=== PATIENT | female | born 1975 | race Caucasian/White ===

== ENCOUNTER 2017-08-17 12:25 | Emergency (ER) | payer OTHER ==
[~2017-08-17] VITALS: Ht 172.7 cm; Wt 134.3 kg
[2017-08-17 12:34] VITALS: BP 136/65
--- NOTE | 2017-08-17 12:40 | NUR ---
PT AMBULATES TO BED 12, REPORT GIVEN TO ELIAN CHARLES
--- NOTE | 2017-08-17 12:50 | NUR ---
PATIENT PRESENTS TO ED WITH COMPLAINTS OF LEFT EYE PAIN, SWELLING, AND BLURRY VISION. PATIENT REPORTS THAT SYMPTOMS STARTED THIS MORNING UPON WAKENING. LEFT EYE APPEARS RED AND SWOLLEN. DENIES N/V/D; SKIN IS PINK/WARM/DRY; AAOX4 WITH EVEN AND STEADY GAIT; LUNGS CLEAR BL; HR EVEN AND REGULAR; PT DENIES ANY FEVER, CP, SOB, OR COUGH AT THIS TIME; PATIENT STATES PAIN OF 7/10 AT THIS TIME; VSS; PATIENT POSITIONED FOR COMFORT; HOB ELEVATED; BEDRAILS UP X1; BED DOWN. ER MD MADE AWARE OF PT STATUS.
--- NOTE | 2017-08-17 15:07 | NUR ---
Patient discharged with v/s stable. Written and verbal after care instructions given and explained. Patient alert, oriented and verbalized understanding of instructions. Ambulatory with steady gait. All questions addressed prior to discharge. ID band removed. Patient advised to follow up with PMD. Rx of ERYTHROMYCIN, IBUPROFEN, DOXYCYCLINE given. Patient educated on indication of medication including possible reaction and side effects. Opportunity to ask questions provided and answered.
[2017-08-17 15:08] VITALS: BP 121/61
== END 2017-08-17 15:07 | disposition home or self-care (01) ==
LOC: MED 12:25
DX: H00.14 Chalazion left upper eyelid (principal); F41.9 Anxiety disorder, unspecified; F32.9 Major depressive disorder, single episode, unspecified; I10 Essential (primary) hypertension; Z87.442 Personal history of urinary calculi
CPT/HCPCS: 99283

== ENCOUNTER 2018-02-07 16:26 | Emergency (ER) | payer OTHER ==
[~2018-02-07] VITALS: Ht 172.7 cm; Wt 126.1 kg
[2018-02-07 16:50] VITALS: BP 123/66
[2018-02-07] MEDS ORDERED: DIT5 PO (17:00)
[2018-02-07] MEDS ORDERED: SERT100T PO (17:00)
[2018-02-07] MEDS ORDERED: FERR325E14 PO (17:00)
[2018-02-07] MEDS ORDERED: ORE25 PO (17:00)
[2018-02-07] MEDS ORDERED: GABA300C PO (17:00)
[2018-02-07] MEDS ORDERED: ALPR0.5T20 PO (17:00)
[2018-02-07] MEDS ORDERED: QUET300T1 PO (17:00)
[2018-02-07] MEDS ORDERED: IBUP-2213 PO (17:00)
[2018-02-07] MEDS ORDERED: TRAZ-343 PO (17:00)
[2018-02-07] MEDS ORDERED: KETOROLAC 30 MG/ML VIAL IVP ONE (19:15)
[2018-02-07] MEDS ORDERED: NACL 0.9% 1,000 ML IV ONE (19:15)
[2018-02-07] MEDS ORDERED: ONDANSETRON 4 MG/2 ML VIAL IVP ONE (20:10)
[2018-02-07] MEDS ORDERED: MORPHINE SULFATE 4 MG/ML SYR IVP ONE (20:10)
[2018-02-07 21:19] VITALS: BP 98/76
== END 2018-02-07 21:19 | disposition home or self-care (01) ==
LOC: MED 16:26
DX: R10.9 Unspecified abdominal pain (principal); R30.0 Dysuria; R11.0 Nausea; I10 Essential (primary) hypertension; F17.200 Nicotine dependence, unspecified, uncomplicated; Z87.442 Personal history of urinary calculi; Z90.49 Acquired absence of other specified parts of digestive tract; Z79.899 Other long term (current) drug therapy
CPT/HCPCS: 81002; 81025; 96374; 96375; 99283; J1885; J2270; J2405; J7030

== ENCOUNTER 2018-12-25 11:47 | Emergency (ER) | payer OTHER ==
[~2018-12-25] VITALS: Ht 172.7 cm; Wt 108.9 kg
[~2018-12-25 11:47] MED LIST: ALPR0.5T20 PO; DIT5 PO; FERR325E14 PO; GABA300C PO; IBUP-2213 PO; ORE25 PO; QUET300T1 PO; SERT100T PO; TRAZ-343 PO
[2018-12-25 12:01] VITALS: BP 131/80
--- NOTE | 2018-12-25 12:04 | NUR ---
Patient transferred to bed 1 via wheelchair. RN evaluating patient and family at bedside.
[2018-12-25] MEDS ORDERED: IBUPROFEN 800 MG TAB PO ONE (12:10)
--- NOTE | 2018-12-25 12:15 | NUR ---
S/P FALL THIS MORNING IN THE SHOWER, DENIES LOC, C/O GENERALIZED BODY PAIN HX MS, DEPRESSION, MS, LUPUS, HTN, BIPOLAR, ANXIETY . DENIES N/V/D; SKIN IS PINK/WARM/DRY; AAOX4 . LUNGS CLEAR BL; HR EVEN AND REGULAR; PT DENIES ANY FEVER, CP, SOB, OR COUGH AT THIS TIME; PATIENT STATES PAIN OF 10/10 AT THIS TIME; VSS; PATIENT POSITIONED FOR COMFORT; HOB ELEVATED; BEDRAILS UP X2; BED DOWN. ER MD MADE AWARE OF PT STATUS.
[2018-12-25 14:38] VITALS: BP 125/78
== END 2018-12-25 14:39 | disposition home or self-care (01) ==
LOC: MED 11:47
DX: S66.911A Strain of unspecified muscle, fascia and tendon at wrist and hand level, right hand, initial encounter (principal); S20.211A Contusion of right front wall of thorax, initial encounter; M79.601 Pain in right arm; I10 Essential (primary) hypertension; Z98.890 Other specified postprocedural states; Z79.1 Long term (current) use of non-steroidal anti-inflammatories (NSAID); Z79.899 Other long term (current) drug therapy; W01.0XXA Fall on same level from slipping, tripping and stumbling without subsequent striking against object, initial encounter; Y93.89 Activity, other specified; Y92.89 Other specified places as the place of occurrence of the external cause; Y99.8 Other external cause status
CPT/HCPCS: 71100; 73080; 73110; 99283

== ENCOUNTER 2021-06-19 07:27 | Emergency (ER) | payer OTHER ==
[~2021-06-19] VITALS: Ht 172.7 cm; Wt 124.3 kg
[~2021-06-19 07:27] MED LIST changes: +HYDR-4004 PO; -ORE25 PO
[2021-06-19 07:31] VITALS: BP 174/109
--- NOTE | 2021-06-19 07:38 | NUR ---
Patient ambulated to bed 09 with steady/even gait.
--- NOTE | 2021-06-19 07:48 | NUR ---
Dr. [place] is evaluating patient at bedside
--- NOTE | 2021-06-19 07:50 | NUR ---
45yo F, known asthmatic, c/o worsening sob, diff breathing, chest pain, congestion and productive cough x 3 days. 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 Pt states sternal chest pain 7/10, stabbing/twisting/intermittent, non-radiating pain. Pt placed onto phototypesetting equipment monitor. SpO2 100% on room air. Denies blurry vision, headache, fever, chills, n/v/d. Bed locked in lowest position, side rails x 1. pmh: asthma, anxiety meds: albuterol nka
[2021-06-19] MEDS ORDERED: KETOROLAC 30 MG/ML VIAL IM ONE (07:55)
--- NOTE | 2021-06-19 08:03 | NUR ---
Lab at bedside
--- NOTE | 2021-06-19 08:05 | NUR ---
RAD at bedside
[2021-06-19 08:22] LABS: BASOPHILS % (AUTO) 0.6 % (0.0-2.0); EOSINOPHILS # (AUTO) 0.2 K/uL (0-0.4); EOSINOPHILS % (AUTO) 3.3 % (0.0-4.0); HEMATOCRIT 34.7 % (36-48); HEMOGLOBIN 11.6 g/dL (12.0-16.0); LYMPHOCYTES # (AUTO) 1.3 K/uL (2.5-16.5); LYMPHOCYTES % (AUTO) 26.9 % (20.5-51.1); MEAN CORPUSCULAR HEMOGLOBIN 30 pg (27-31); MEAN CORPUSCULAR HGB CONC 33 g/dL (33-37); MEAN CORPUSCULAR VOLUME 88.5 fL (80-94); MONOCYTES # (AUTO) 0.3 K/uL (0.8-1.0); MONOCYTES % (AUTO) 7.1 % (1.7-9.3); NEUTROPHILS # (AUTO) 2.9 K/uL (1.8-7.7); NEUTROPHILS % (AUTO) 62.1 % (42.2-75.2); PLATELET COUNT (AUTO) 146 K/uL (140-450); RED BLOOD CELL COUNT(AUTO) 3.93 MIL/uL (4.20-5.40); RED CELL DISTRIBUTION WIDTH 14.1 % (11.6-13.7); WHITE BLOOD COUNT (AUTO) 4.7 K/uL (4.8-10.8)
--- NOTE | 2021-06-19 08:26 | NUR ---
Patient states + relief to pain; 06/21. All needs met.
[2021-06-19 08:39] LABS: ALBUMIN 3.6 g/dL (3.4-5.0); ANION GAP 12.8 (8-16); CARBON DIOXIDE 26.4 mmol/L (21-32); POTASSIUM 3.2 mmol/L (3.5-5.1); TOTAL BILIRUBIN 0.4 mg/dL (0.0-1.0)
[2021-06-19] MEDS ORDERED: POTASSIUM CHLORIDE 10 MEQ TABER PO ONE (09:00)
--- NOTE | 2021-06-19 09:04 | NUR ---
Pt states increasing SOB that comes and goes; RR 29 rapid/deep. SpO2 98% on room air. Lung sounds clear bilaterally. monitor technician remains in place.
--- NOTE | 2021-06-19 09:48 | NUR ---
Lab at bedside
--- NOTE | 2021-06-19 10:51 | NUR ---
Patient resting in high-fowlers with both eyes closed. compliance monitor in place. SpO2 100% on room air; RR 17 even/unlabored. Bed locked in lowest position, side rails x 1.
[2021-06-19] MEDS ORDERED: AMLO5TAB PO (11:34)
[2021-06-19] MEDS ORDERED: amLODIPine 5 MG TAB PO ONE (11:35)
--- NOTE | 2021-06-19 11:36 | NUR ---
Orlando meza and influenza swabs collected, handed to CPT. [place]
[2021-06-19 11:38] VITALS: BP 180/110
--- NOTE | 2021-06-19 11:52 | NUR ---
Patient discharged with v/s stable. Written and verbal after care instructions given and explained for URI, Shortness of Breath, Hypertension. Patient alert, oriented and verbalized understanding of instructions. Ambulatory with steady gait. All questions addressed prior to discharge. ID band removed. Patient advised to follow up with PMD. Rx of Amlodipine given. Patient educated on indication of medication including possible reaction and side effects. Opportunity to ask questions provided and answered. Work note provided.
== END 2021-06-19 11:52 | disposition home or self-care (01) ==
LOC: MED 07:27
DX: J06.9 Acute upper respiratory infection, unspecified (principal); Z20.822 Contact with and (suspected) exposure to COVID-19; R07.9 Chest pain, unspecified; R06.02 Shortness of breath; J45.909 Unspecified asthma, uncomplicated
CPT/HCPCS: 36415; 71045; 80053; 83880; 84484; 85025; 87426; 87804; 93005; 96372; 99285; J1885

== ENCOUNTER 2021-06-26 05:34 | Emergency (ER) | payer OTHER ==
[~2021-06-26] VITALS: Ht 172.7 cm; Wt 123.8 kg
[~2021-06-26 05:34] MED LIST changes: +AMLO5TAB PO
--- NOTE | 2021-06-26 05:38 | NUR ---
PT TAKEN TO ER BED 09 VIA WC
[2021-06-26 05:43] VITALS: BP 183/93
--- NOTE | 2021-06-26 06:05 | NUR ---
45 Y/O FEMALE BIB FAMILY, C/O CP X1WK (WORSE TONIGHT). PATIENT PRESENTS TO ED WITH DIZZINESS, DIFF BREATHING, FATIGUE. PT STATES SHE WAS DX W/ MD LAST WEEK AT [facility] AND THE PAIN HAS NOT GONE AWAY BUT GOT WORSE TODAY. DENIES N/V/D; SKIN IS PINK/WARM/DRY; AAOX4 WITH WEAK AND UNSTEADY GAIT; LUNGS CLEAR BL; HR EVEN AND REGULAR; PT DENIES ANY FEVER OR COUGH AT THIS TIME; PATIENT STATES PAIN OF 9/10 AT THIS TIME; VSS; PATIENT POSITIONED FOR COMFORT; HOB ELEVATED; BEDRAILS UP X1; BED DOWN. ER MD MADE AWARE OF PT STATUS. HX: MD, KIDNEY STONES, ANX, BIPOLAR, MS, LUPUS NKA MEDS: AMLODIPINE
--- NOTE | 2021-06-26 06:16 | NUR ---
Dr. Chavez at bedside to exam patient.
[2021-06-26] MEDS ORDERED: KETOROLAC 60 MG/2 ML VIAL IM ONE (06:25)
[2021-06-26] MEDS ORDERED: IBUP-2213 PO (06:38)
[2021-06-26] MEDS ORDERED: ACET-8386 PO (06:38)
[2021-06-26 06:45] VITALS: BP 183/93
--- NOTE | 2021-06-26 06:46 | NUR ---
Patient discharged with v/s stable. Written and verbal after care instructions given and explained. Patient alert, oriented and verbalized understanding of instructions. Ambulatory with steady gait. All questions addressed prior to discharge. ID band removed. Patient advised to follow up with PMD. Rx of IBUPROFEN AND HYDROCODONE/ACETAM (5-325) given. Patient educated on indication of medication including possible reaction and side effects. Opportunity to ask questions provided and answered. VSS, A/OX4, UNLABORED BREATHING, AMBULATORY, AND CALM DEMEANOR.
== END 2021-06-26 06:44 | disposition home or self-care (01) ==
LOC: MED 05:34
DX: R07.89 Other chest pain (principal); R06.02 Shortness of breath; J45.909 Unspecified asthma, uncomplicated; I10 Essential (primary) hypertension; F17.200 Nicotine dependence, unspecified, uncomplicated; Z79.899 Other long term (current) drug therapy; Z98.890 Other specified postprocedural states
CPT/HCPCS: 93005; 96372; 99283; J1885

== ENCOUNTER 2022-04-28 14:52 | Emergency (ER) | payer OTHER ==
[~2022-04-28] VITALS: Ht 172.7 cm; Wt 107.3 kg
[~2022-04-28 14:52] MED LIST changes: +ACET-8905 PO; -DIT5 PO; +OXYB5TAB44 PO
[2022-04-28 15:01] VITALS: BP 163/100
--- NOTE | 2022-04-28 15:25 | NUR ---
46YO FEMALE PT C/O COUGH, FEVER, CHILLS, AND BODY ACHES X1WEEK. SHARP CHEST PAIN ON COUGH. MOIST NON PRODUCTIVE COUGH PRESENT. CLEAR LYNDA LUNG SOUNDS. DENIES RELIEF AFTER OTC MEDICATION, N/V/D OR ANYONE SICK AT HOME. PT AAOX4, RESPIRATIONS EVEN AND UNLABORED. ON RAKER BUFFING WHEEL. HX: LUPUS, HTN, MS NKDA
--- NOTE | 2022-04-28 15:46 | NUR ---
MD MILLS AT BEDSIDE FOR EVALUATION
[2022-04-28] MEDS ORDERED: KETOROLAC 60 MG/2 ML VIAL IM ONE (15:50)
[2022-04-28] MEDS ORDERED: PRED20TA5 PO (15:58)
[2022-04-28] MEDS ORDERED: CHLO-1090 PO (15:58)
[2022-04-28] MEDS ORDERED: ACET-8905 PO (15:58)
--- NOTE | 2022-04-28 16:14 | NUR ---
Patient discharged with v/s stable. Written and verbal after care instructions FOR UPPER RESPIRATORY INFECTION AND COUGH given and explained. Patient alert, oriented and verbalized understanding of instructions. Ambulatory with steady gait. All questions addressed prior to discharge. ID band removed. Patient advised to follow up with PMD. Rx of HYDROCODON, DELTASONE AND CORICIDIN given. Opportunity to ask questions provided and answered.
--- NOTE | 2022-04-28 16:15 | NUR ---
The patient's care was reviewed and supervised by Edel Phelan RN.
== END 2022-04-28 16:14 | disposition home or self-care (01) ==
LOC: MED 14:52
DX: R50.9 Fever, unspecified (principal); R05.9 Cough, unspecified; M79.10 Myalgia, unspecified site; I10 Essential (primary) hypertension; F17.200 Nicotine dependence, unspecified, uncomplicated; Z79.899 Other long term (current) drug therapy
CPT/HCPCS: 81025; 93005; 96372; 99283; J1885

== ENCOUNTER 2022-08-07 10:32 | Emergency (ER) | payer OTHER ==
[~2022-08-07] VITALS: Ht 172.7 cm; Wt 116.2 kg
[~2022-08-07 10:32] MED LIST changes: +CHLO-1090 PO; +PRED20TA5 PO
[2022-08-07 10:44] VITALS: BP 158/95
--- NOTE | 2022-08-07 10:50 | NUR ---
PATIENT AMBULATED TO BED 11
[2022-08-07] MEDS ORDERED: VIGOS BOTH EYES (11:02)
[2022-08-07] MEDS ORDERED: LORA1T PO (11:02)
[2022-08-07] MEDS ORDERED: OLOP2.5D7 BOTH EYES (11:02)
[2022-08-07 11:20] VITALS: BP 140/88
--- NOTE | 2022-08-07 11:20 | NUR ---
Patient discharged with v/s stable. Written and verbal after care instructions FOR BACTERIAL CONJUCTIVITIS, ALLERGIC RHINITIS AND ALLERGIC CONJUCTIVITIS given and explained. Patient alert, oriented and verbalized understanding of instructions. Ambulatory with to car. All questions addressed prior to discharge. ID band removed. Patient advised to follow up with PMD. Rx of LORATADINE, PATADAY AND VIGAMOX 0.5% given. Opportunity to ask questions provided and answered.
== END 2022-08-07 11:20 | disposition home or self-care (01) ==
LOC: MED 10:32
DX: H57.89 Other specified disorders of eye and adnexa (principal); R09.81 Nasal congestion; H53.8 Other visual disturbances; I10 Essential (primary) hypertension; Z90.49 Acquired absence of other specified parts of digestive tract; Z98.890 Other specified postprocedural states; Z79.899 Other long term (current) drug therapy; Z79.1 Long term (current) use of non-steroidal anti-inflammatories (NSAID); E78.5 Hyperlipidemia, unspecified
CPT/HCPCS: 99282

== ENCOUNTER 2022-12-11 15:04 | Emergency (ER) | payer OTHER ==
[~2022-12-11] VITALS: Ht 172.7 cm; Wt 112.5 kg
[~2022-12-11 15:04] MED LIST changes: +LORA1T PO; +OLOP2.5D7 BOTH EYES; +VIGOS BOTH EYES
[2022-12-11 15:28] VITALS: BP 178/102; PULSE 73; RESP 15; TEMP 97.5; O2SAT 97
[2022-12-11 19:24] LABS: BASOPHILS % (AUTO) 0.6 % (0.0-2.0); EOSINOPHILS # (AUTO) 0.1 K/uL (0-0.4); EOSINOPHILS % (AUTO) 1.8 % (0.0-4.0); HEMATOCRIT 35.1 % (36-48); HEMOGLOBIN 11.3 g/dL (12.0-16.0); LYMPHOCYTES # (AUTO) 1.6 K/uL (2.5-16.5); LYMPHOCYTES % (AUTO) 26.3 % (20.5-51.1); MEAN CORPUSCULAR HEMOGLOBIN 27 pg (27-31); MEAN CORPUSCULAR HGB CONC 32 g/dL (33-37); MEAN CORPUSCULAR VOLUME 83.8 fL (80-94); MONOCYTES # (AUTO) 0.4 K/uL (0.8-1.0); NEUTROPHILS # (AUTO) 3.9 K/uL (1.8-7.7); NEUTROPHILS % (AUTO) 65.3 % (42.2-75.2); PLATELET COUNT (AUTO) 167 K/uL (140-450); RED BLOOD CELL COUNT(AUTO) 4.19 MIL/uL (4.20-5.40); RED CELL DISTRIBUTION WIDTH 14.2 % (11.6-13.7)
[2022-12-11 19:43] LABS: ANION GAP 9.7 (8-16); CALCIUM 9.3 mg/dL (8.5-10.1); CARBON DIOXIDE 28.3 mmol/L (21-32); CREATININE 0.9 mg/dL (0.6-1.3)
[2022-12-11 19:49] LABS: FLU A ANTIGEN negative (NEGATIVE); FLU B ANTIGEN NEGATIVE (NEGATIVE)
[2022-12-11 19:56] VITALS: BP 144/72; PULSE 77; RESP 16; TEMP 97.5; O2SAT 97
== END 2022-12-11 19:56 | disposition home or self-care (01) ==
LOC: MED 15:04
DX: B34.9 Viral infection, unspecified (principal); Z20.822 Contact with and (suspected) exposure to COVID-19; I10 Essential (primary) hypertension; Z79.899 Other long term (current) drug therapy; Z79.1 Long term (current) use of non-steroidal anti-inflammatories (NSAID)
CPT/HCPCS: 36415; 71045; 80048; 85025; 99284

== ENCOUNTER 2023-04-24 13:14 | Emergency (ER) | payer OTHER ==
[~2023-04-24] VITALS: Ht 172.7 cm; Wt 114.8 kg
[2023-04-24 13:35] VITALS: BP 167/98; PULSE 84; RESP 20; TEMP 98.7; O2SAT 97
[2023-04-24 13:52] VITALS: O2SAT 97
[2023-04-24 14:01] VITALS: BP 166/94; PULSE 84; RESP 20; TEMP 98.7; O2SAT 97
[2023-04-24 14:16] LABS: APPEARANCE,URINE CLEAR (CLEAR); BILIRUBIN,URINE NEGATIVE (NEGATIVE); BLOOD, URINE NEGATIVE (NEGATIVE); COLOR,URINE YELLOW (YELLOW); LEUKOCYTE ESTERASE ,URINE NEGATIVE (NEGATIVE); NITRITE, URINE NEGATIVE (NEGATIVE); PH,URINE 6.5 (5.0-9.0); PROTEIN,URINE NEGATIVE (NEGATIVE); UGLUCOSE NEGATIVE (NEGATIVE); UROBILINOGEN,URINE 0.2 EU/dL (0.2 - 1)
[2023-04-24 14:17] LABS: BASOPHILS % (AUTO) 0.7 % (0.0-2.0); EOSINOPHILS # (AUTO) 0.2 K/uL (0-0.4); EOSINOPHILS % (AUTO) 3.3 % (0.0-4.0); HEMATOCRIT 32.3 % (36-48); HEMOGLOBIN 10.8 g/dL (12.0-16.0); LYMPHOCYTES # (AUTO) 1.4 K/uL (2.5-16.5); LYMPHOCYTES % (AUTO) 25.8 % (20.5-51.1); MEAN CORPUSCULAR HEMOGLOBIN 28 pg (27-31); MEAN CORPUSCULAR HGB CONC 33 g/dL (33-37); MEAN CORPUSCULAR VOLUME 83.4 fL (80-94); MONOCYTES # (AUTO) 0.4 K/uL (0.8-1.0); MONOCYTES % (AUTO) 7.2 % (1.7-9.3); NEUTROPHILS # (AUTO) 3.4 K/uL (1.8-7.7); PLATELET COUNT (AUTO) 138 K/uL (140-450); RED BLOOD CELL COUNT(AUTO) 3.87 MIL/uL (4.20-5.40); RED CELL DISTRIBUTION WIDTH 15.4 % (11.6-13.7); WHITE BLOOD COUNT (AUTO) 5.3 K/uL (4.8-10.8)
[2023-04-24 14:30] LABS: ANION GAP 15.4 (8-16); CALCIUM 8.5 mg/dL (8.5-10.1); CARBON DIOXIDE 24.4 mmol/L (21-32); CREATININE 0.8 mg/dL (0.6-1.3); POTASSIUM 3.8 mmol/L (3.5-5.1)
[2023-04-24 14:36] LABS: ALBUMIN 3.4 g/dL (3.4-5.0); TOTAL BILIRUBIN 0.2 mg/dL (0.0-1.0)
[2023-04-24] MEDS: NACL 0.9% 1,000 ML IV ONE (14:53)
[2023-04-24] MEDS: KETOROLAC 30 MG/ML VIAL IVP ONE (14:54)
[2023-04-24] MEDS: ONDANSETRON 4 MG/2 ML VIAL IVP ONE (14:54)
[2023-04-24] MEDS ORDERED: NAPR-1704 PO (15:01)
[2023-04-24] MEDS ORDERED: PYR100 PO (15:01)
[2023-04-24] MEDS ORDERED: LID5T TP (15:01)
== END 2023-04-24 15:15 | disposition home or self-care (01) ==
LOC: MED 13:14
DX: R10.9 Unspecified abdominal pain (principal); D64.9 Anemia, unspecified; D69.6 Thrombocytopenia, unspecified; I10 Essential (primary) hypertension; I25.2 Old myocardial infarction; Z90.49 Acquired absence of other specified parts of digestive tract; Z98.890 Other specified postprocedural states; Z79.899 Other long term (current) drug therapy; Z79.1 Long term (current) use of non-steroidal anti-inflammatories (NSAID)
CPT/HCPCS: 36415; 74176; 80048; 80076; 81003; 81025; 83690; 85025; 96361; 96374; 96375; 99285; J1885; J2405; J7030